=== PATIENT | female | born 1945 | race Caucasian/White ===

== ENCOUNTER 2021-06-10 07:13 | Inpatient (IN) | payer OTHER, MEDICARE ==
[2021-06-08 14:38] VITALS: BMI 38.6
[2021-06-10] MEDS ORDERED: BUPIVACAINE LIPOSOME/PF (EXPAREL) 266 MG/20 ML VIAL ONE (08:01)
[2021-06-10] MEDS ORDERED: SODIUM CHLORIDE 0.9% P/F 10 ML VIAL IJ ONE (08:01)
[2021-06-10] MEDS ORDERED: MIDAZOLAM HCL 2 MG/2 ML SINGLE DOSE VIAL ONE (08:01)
[2021-06-10] MEDS ORDERED: BUPIVACAINE HCL/PF 0.5% (5MG/ML) 10 ML VIAL ONE ×2 (08:01→09:36)
[2021-06-10] MEDS ORDERED: TRANEXAMIC ACID 1000 MG/10 ML VIAL IVPUSH ONE (08:06)
[2021-06-10] MEDS: CELECOXIB 200 MG CAPSULE PO ONE ×2 (08:15→15:46)
[2021-06-10] MEDS ORDERED: CEFAZOLIN 2 GM in DEXTROSE 5%-WATER - 50 ML IVPB ONE (08:30)
[2021-06-10] MEDS ORDERED: TRANEXAMIC ACID 1000 MG/10 ML VIAL ONE (10:07)
[2021-06-10] MEDS ORDERED: ceFAZolin SODIUM 1 GM VIAL ONE (10:07)
[2021-06-10] MEDS ORDERED: DEXAMETHASONE SOD PHOSPHATE 4 MG/1 ML VIAL ONE (10:13)
[2021-06-10] MEDS ORDERED: ONDANSETRON 4 MG/2 ML VIAL ONE (10:13)
[2021-06-10] MEDS ORDERED: PROPOFOL 20 ML ONE ×5 (10:16→11:05)
[2021-06-10] MEDS ORDERED: ONDANSETRON 4 MG/2 ML VIAL IVPUSH PRN ×2 (11:01→12:50)
[2021-06-10] MEDS ORDERED: oxyCODONE HCL 5 MG TABLET PO PRN ×2 (11:02)
[2021-06-10] MEDS ORDERED: LACTATED RINGERS SOLUTION 1,000 ML IV SCH ×2 (11:15→13:00)
[2021-06-10] MEDS ORDERED: KETOROLAC TROMETHAMINE 30 MG/1 ML VIAL IVPUSH SCH (12:00)
[2021-06-10] MEDS ORDERED: MAG HYDROX/AL HYDROX/SIMETH 30 ML UNIT-DOSE CUP PO PRN (12:50)
[2021-06-10] MEDS ORDERED: MAGNESIUM HYDROX 2400MG/30ML ORAL SUSPENSION 30 ML CUP PO PRN (12:50)
[2021-06-10] MEDS ORDERED: KETOROLAC TROMETHAMINE 30 MG/1 ML VIAL ONE (13:29)
[2021-06-10] MEDS: KETOROLAC TROMETHAMINE 30 MG/1 ML VIAL IVPUSH SCH ×2 (13:45→21:18)
[2021-06-10] MEDS: CEFAZOLIN 2 GM/D5W 2 GM/50 ML ML IVPB SCH (18:03)
[2021-06-10] MEDS: GABAPENTIN 300 MG CAPSULE PO SCH (21:17)
[2021-06-10] MEDS: ASPIRIN COATED 81 MG TABLET.EC PO SCH (21:17)
[2021-06-10] MEDS: SENNOSIDES/DOCUSATE COMBO (SENNA PLUS) TABLET (UD) PO SCH (21:17)
[2021-06-10] MEDS: ATORVASTATIN CA 10 MG TABLET (FP) PO SCH (21:17)
[2021-06-10] MEDS: oxyCODONE HCL 10 MG SUSTAINED ACTING TABLET PO SCH (21:17)
[2021-06-10] MEDS: FAMOTIDINE 10 MG TABLET PO SCH (21:18)
[2021-06-11] MEDS: KETOROLAC TROMETHAMINE 30 MG/1 ML VIAL IVPUSH SCH (01:14)
[2021-06-11] MEDS: CEFAZOLIN 2 GM/D5W 2 GM/50 ML ML IVPB SCH (01:14)
[2021-06-11 07:52] LABS: HEMATOCRIT 29.5 % (32.4-45.2); HEMOGLOBIN 10.3 GM/dl (10.7-15.3); MCHC 34.7 g/dl (32.0-36.0); MEAN CELL VOLUME 97.9 fl (80-96); MEAN PLT VOLUME 9.1 fl (7.5-11.1); PLATELET COUNT 154 10^3/uL (134-434); RBC 3.01 M/mm3 (3.60-5.2); RDW 12.5 % (11.6-15.6); WHITE BLOOD COUNT 9.6 K/mm3 (4.0-10.8)
[2021-06-11 08:04] LABS: CALCIUM 8.3 mg/dl (8.5-10); CREATININE 0.8 mg/dl (0.55-1.3)
[2021-06-11] MEDS: ATENOLOL 25 MG TABLET (FP) PO SCH ×2 (09:55→09:56)
[2021-06-11] MEDS: CHOLECALCIFEROL (VIT D3) 1,000 UNIT (25 MCG) TABLET PO SCH (09:58)
[2021-06-11] MEDS: MULTIVITAMINS (DAILY MVI) TABLET (FP) PO SCH (09:59)
[2021-06-11] MEDS: ASPIRIN COATED 81 MG TABLET.EC PO SCH ×2 (09:59→21:47)
[2021-06-11] MEDS: oxyCODONE HCL 10 MG SUSTAINED ACTING TABLET PO SCH ×2 (09:59→21:47)
[2021-06-11] MEDS: GABAPENTIN 300 MG CAPSULE PO SCH ×2 (09:59→21:47)
[2021-06-11] MEDS ORDERED: SIMVASTATIN 20 MG PO SCH (10:00)
[2021-06-11] MEDS: SENNOSIDES/DOCUSATE COMBO (SENNA PLUS) TABLET (UD) PO SCH ×2 (10:01→21:53)
[2021-06-11] MEDS: FAMOTIDINE 10 MG TABLET PO SCH ×2 (10:01→21:52)
[2021-06-11] MEDS ORDERED: IBUPROFEN 800 MG/8 ML IJ IVPB ONE ×2 (19:00→20:00)
[2021-06-11] MEDS: ATORVASTATIN CA 10 MG TABLET (FP) PO SCH (21:47)
[2021-06-12] MEDS ORDERED: ACETAMINOPHEN 325 MG TABLET (FP) ONE (00:11)
[2021-06-12] MEDS: CELECOXIB 100 MG CAPSULE PO ONE ×2 (06:47→06:48)
[2021-06-12 07:58] LABS: HEMATOCRIT 29.5 % (32.4-45.2); MCH 33.7 pg (25.7-33.7); MCHC 33.8 g/dl (32.0-36.0); MEAN CELL VOLUME 99.6 fl (80-96); MEAN PLT VOLUME 9.2 fl (7.5-11.1); PLATELET COUNT 139 10^3/uL (134-434); RBC 2.96 M/mm3 (3.60-5.2); RDW 12.6 % (11.6-15.6); WHITE BLOOD COUNT 6.7 K/mm3 (4.0-10.8)
[2021-06-12] MEDS: MULTIVITAMINS (DAILY MVI) TABLET (FP) PO SCH (09:31)
[2021-06-12] MEDS: ASPIRIN COATED 81 MG TABLET.EC PO SCH (09:31)
[2021-06-12] MEDS: FAMOTIDINE 10 MG TABLET PO SCH (09:32)
[2021-06-12] MEDS: SENNOSIDES/DOCUSATE COMBO (SENNA PLUS) TABLET (UD) PO SCH (09:32)
[2021-06-12] MEDS: GABAPENTIN 300 MG CAPSULE PO SCH (09:32)
[2021-06-12] MEDS: CHOLECALCIFEROL (VIT D3) 1,000 UNIT (25 MCG) TABLET PO SCH (09:32)
[2021-06-12] MEDS: ATENOLOL 25 MG TABLET (FP) PO SCH (09:33)
[2021-06-12] MEDS: oxyCODONE HCL 10 MG SUSTAINED ACTING TABLET PO SCH (09:34)
[2021-06-12 13:33] VITALS: BP 114/68; PULSE 70; TEMP 98.5
== END 2021-06-12 13:04 | disposition home or self-care (01) | DRG 470 ==
LOC: FASU 07:13 → FM/S 08:01 → FASU 13:56 → FM/S 06-12 13:04 → FASU 06-14 16:54
PROVIDERS: ADMIT Orthopaedic Surgery; ATTEND Orthopaedic Surgery
PROC: 0SRC0J9 Replacement of Right Knee Joint with Synthetic Substitute, Cemented, Open Approach (ICD-10-PCS; principal; 2021-06-10 10:25)
DX: M17.11 Unilateral primary osteoarthritis, right knee (principal); I10 Essential (primary) hypertension; E78.5 Hyperlipidemia, unspecified
CPT/HCPCS: 36415; 73560-TC-RT-FY; 80048; 85027; 94760; 97010-GP; 97116-GP; 97163-GP; C9803; U0003; U0005